=== PATIENT | male | born 1980 | race Caucasian/White ===

== ENCOUNTER 2017-09-20 09:45 | Emergency (ER) | payer MEDICAID ==
[~2017-09-20] VITALS: Ht 175.3 cm; Wt 65.3 kg
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
[2017-09-20] MEDS ORDERED: HYDROCODONE/APAP 5/325MG 1 EACH TABLET PO ONE (10:00)
[2017-09-20] MEDS ORDERED: HYDROCODONE/APAP 5/325MG 1 EACH TABLET ONE (10:10)
--- NOTE | 2017-09-20 10:59 | NUR ---
PT BACK FROM XRAY
[2017-09-20 11:56] VITALS: BP 147/82
--- NOTE | 2017-09-20 11:56 | NUR ---
Patient discharged to home in stable condition. Written and verbal after care instructions given. Patient verbalizes understanding of instruction.
== END 2017-09-20 11:57 | disposition home or self-care (01) ==
LOC: ER 09:46
DX: S39.012A Strain of muscle, fascia and tendon of lower back, initial encounter (principal); S16.1XXA Strain of muscle, fascia and tendon at neck level, initial encounter; S80.02XA Contusion of left knee, initial encounter; S20.212A Contusion of left front wall of thorax, initial encounter; F41.9 Anxiety disorder, unspecified; Z88.8 Allergy status to other drugs, medicaments and biological substances; V43.52XA Car driver injured in collision with other type car in traffic accident, initial encounter; Y93.89 Activity, other specified; Y92.410 Unspecified street and highway as the place of occurrence of the external cause; Y99.8 Other external cause status
CPT/HCPCS: 71100-TC; 72125-TC; 73560-TC; A4606; Z7610

== ENCOUNTER 2017-10-22 11:52 | Emergency (ER) | payer MEDICAID, OTHER ==
[~2017-10-22] VITALS: Ht 170.2 cm; Wt 72.6 kg
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
--- NOTE | 2017-10-22 13:00 | NUR ---
Patient discharged to home in stable condition. RELIEASESD FROM CUSTODY. Written and verbal after care instructions given. Patient verbalizes understanding of instruction.
[2017-10-22 13:01] VITALS: BP 117/60
== END 2017-10-22 13:02 | disposition home or self-care (01) ==
LOC: ER 11:54
DX: F41.0 Panic disorder [episodic paroxysmal anxiety] (principal); F32.9 Major depressive disorder, single episode, unspecified; Z88.6 Allergy status to analgesic agent
CPT/HCPCS: 99284; A4606; Z7610

== ENCOUNTER 2017-12-02 09:34 | Emergency (ER) | payer MEDICAID ==
[~2017-12-02] VITALS: Ht 167.6 cm; Wt 63.5 kg
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
[2017-12-02] MEDS ORDERED: LORAZEPAM 1 MG TABLET ONE (10:20)
[2017-12-02] MEDS: LORAZEPAM 0.5 MG TABLET PO ONE (10:23)
--- NOTE | 2017-12-02 10:23 | NUR ---
SEEN BY DR SCHERER,MEDICATED ORDERED
[2017-12-02 11:18] VITALS: BP 117/65
--- NOTE | 2017-12-02 11:18 | NUR ---
Patient discharged to home in stable condition. Written and verbal after care instructions given. Patient verbalizes understanding of instruction.
== END 2017-12-02 11:19 | disposition home or self-care (01) ==
LOC: ER 09:39
DX: F41.9 Anxiety disorder, unspecified (principal); Z88.6 Allergy status to analgesic agent
CPT/HCPCS: 93005; 99284; A4606; Z7610

== ENCOUNTER 2020-09-08 09:42 | Emergency (ER) | payer MEDICAID ==
[~2020-09-08] VITALS: Ht 175.3 cm; Wt 63.5 kg
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
[2020-09-08] MEDS ORDERED: ACETAMINOPHEN 325 MG TABLET ONE (10:10)
[2020-09-08] MEDS: ACETAMINOPHEN 325 MG TABLET PO ONE (10:15)
[2020-09-08] MEDS ORDERED: HYDROCODONE/APAP 10/325MG TABLET ONE (11:08)
[2020-09-08] MEDS: HYDROCODONE/APAP 10/325MG TABLET PO ONE (11:14)
--- NOTE | 2020-09-08 11:24 | NUR ---
Patient discharged to home in stable condition. Written and verbal after care instructions given. Patient verbalizes understanding of instruction.
[2020-09-08 11:26] VITALS: BP 110/66
== END 2020-09-08 11:27 | disposition home or self-care (01) ==
LOC: ER 09:45
DX: M54.2 Cervicalgia (principal); V43.62XA Car passenger injured in collision with other type car in traffic accident, initial encounter; Y92.410 Unspecified street and highway as the place of occurrence of the external cause; M25.78 Osteophyte, vertebrae; M47.892 Other spondylosis, cervical region; M51.37 Other intervertebral disc degeneration, lumbosacral region; U07.1 COVID-19
CPT/HCPCS: 70450; 72110; 72125; 99285; C9803; L0172; U0003

== ENCOUNTER → 2024-06-14 | Emergency (ER) | payer MEDICAID, OTHER ==
[~2024-06-14] VITALS: Ht 172.7 cm; Wt 72.6 kg
[2024-06-14 10:22] LABS: APPEARANCE,URINE Clear (CLEAR); BILIRUBIN,URINE Negative (NEGATIVE); BLOOD, URINE Trace-intact Ery/uL (NEGATIVE); COLOR,URINE YELLOW (YELLOW); KETONES,URINE Negative (NEGATIVE); LEUKOCYTE ESTERASE ,URINE Negative (NEGATIVE); NITRITE, URINE Negative (NEGATIVE); PROTEIN,URINE Negative (NEGATIVE); UGLUCOSE Negative (NEGATIVE); UROBILINOGEN,URINE 0.2 EU/dL (0.2)
[2024-06-14 10:31] LABS: BASOPHILS # (AUTO) 0.1 K/uL (0.0-0.2); BASOPHILS % (AUTO) 1.4 % (0.0-2.0); EOSINOPHILS % (AUTO) 1.3 % (0.0-6.0); HEMATOCRIT 36 % (39-51); LYMPHOCYTES # (AUTO) 1.2 K/uL (0.8-4.8); LYMPHOCYTES % (AUTO) 31.1 % (20.0-44.0); MEAN CORPUSCULAR HEMOGLOBIN 30 PG (26.0-33.0); MEAN CORPUSCULAR HGB CONC 33 g/dl (31.0-36.0); MEAN CORPUSCULAR VOLUME 89 fL (80-96); MONOCYTES # (AUTO) 0.4 K/uL (0.1-1.30); MONOCYTES % (AUTO) 10.7 % (2.0-12.0); NEUTROPHILS # (AUTO) 2.1 K/uL (1.8-8.9); NEUTROPHILS % (AUTO) 55.5 % (43.0-81.0); PLATELET COUNT (AUTO) 238 K/uL (150-450); RED BLOOD CELL COUNT(AUTO) 4.03 MIL/uL (4.5-6.0); RED CELL DISTRIBUTION WIDTH 13.2 % (11.5-15.0); WHITE BLOOD COUNT (AUTO) 3.8 K/uL (4.3-11.0)
[2024-06-14 10:37] LABS: CALCIUM, SERUM 8.6 mg/dL (8.5-10.1); CREATININE 1.1 mg/dL (0.6-1.3); POTASSIUM 4.7 mmol/L (3.5-5.1)
[2024-06-14 10:42] LABS: ADD URINE CULTURE NO; BACTERIA,URINE Rare /HPF (None Seen); SQUAMOUS EPITHELIAL CELL,UR Few /HPF (None Seen); WBC,URINE 0-2 /HPF (0-3)
[2024-06-14 11:21] VITALS: BP 130/71; TEMP 98.4; O2SAT 100
== END | disposition home or self-care (01) ==
LOC: ER 09:58
DX: R31.9 Hematuria, unspecified (principal); F41.9 Anxiety disorder, unspecified; Z79.1 Long term (current) use of non-steroidal anti-inflammatories (NSAID); Z60.2 Problems related to living alone
CPT/HCPCS: 36415; 80048-TC; 81001; 85025-TC